=== PATIENT | female | born 1990 | race Caucasian/White ===

== ENCOUNTER 2016-10-31 18:30 | Emergency (ER) | payer BC ==
[2016-10-31 18:51] VITALS: BP 144/84; PULSE 91; RESP 18; TEMP 98.4; O2SAT 95
--- NOTE | 2016-10-31 20:21 | EDPHY ---
H & P Stated Complaint: Transient migratory numbness/weakness x 1 year;wants CT Time Seen by Provider: 10/31/16 20:20 HPI/ROS: CHIEF COMPLAINT: Paresthesias HISTORY OF PRESENT ILLNESS: The patient is a 25-year-old female with a history of trigeminal neuralgia and migraines who comes to the emergency department because her boyfriend is dehydrated. She decided to get seen while she was here as well. She states that for the last couple of years she has had intermittent episodes of paresthesias involving various places. It has recently been involving her left alejandro area and now right alejandro and left forearm and face. Does not involve hands or feet or proximal extremities. She denies back pain. She denies fevers. She denies trauma. She is able to ambulate. She states that yesterday see had some trouble ambulating because her left leg was numb but that today it is much better. She has had 3 MRIs this year being worked up for MS by her primary physician. She states that they have all been negative. She has MS in her family as well as lupus. She has not had any rashes. She denies GI symptoms. She denies chest pain. She does not have any weakness. No bowel or bladder abnormalities. No headaches. She does use amphetamines. REVIEW OF SYSTEMS: Constitutional: denies: chills, fever, recent illness, recent injury EENTM: denies: blurred vision, double vision, nose congestion Respiratory: denies: cough, shortness of breath Cardiac: denies: chest pain, irregular heart rate, lightheadedness, palpitations Gastrointestinal/Abdominal: denies: abdominal pain, diarrhea, nausea, vomiting, blood streaked stools Genitourinary: denies: dysuria, frequency, hematuria, pain Musculoskeletal: denies: joint pain, muscle pain Skin: denies: lesions, rash, jaundice, bruising Neurological: See HPI denies: headache, dizziness, weakness Hematologic/Lymphatic: denies: blood clots, easy bleeding, easy bruising Immunologic/allergic: denies: HIV/AIDS, transplant EXAM: GENERAL: Well-appearing, well-nourished and in no acute distress. HEAD: Atraumatic, normocephalic. EYES: Pupils equal round and reactive to light, extraocular movements intact, sclera anicteric, conjunctiva are normal. ENT: TMs normal, nares patent, oropharynx clear without exudates. Moist mucous membranes. NECK: Normal range of motion, supple without lymphadenopathy or JVD. LUNGS: Breath sounds clear to auscultation bilaterally and equal. No wheezes rales or rhonchi. HEART: Regular rate and rhythm without murmurs, rubs or gallops. ABDOMEN: Soft, nontender, normoactive bowel sounds. No guarding, no rebound. No masses appreciated. BACK: No CVA tenderness, no spinal tenderness, step-offs or deformities EXTREMITIES: Normal range of motion, no pitting or edema. No clubbing or cyanosis. NEUROLOGICAL: Subjective paresthesias in left and right ankle as well as left triceps and left face. Cranial nerves II through XII grossly intact. Normal speech, normal gait. Normal ambulation. Normal balance. Normal strength on Tippy toes. 5/5 strength, normal movement in all extremities, normal sensation PSYCH: Normal mood, normal affect. SKIN: Warm, dry, normal turgor, no visible rashes or lesions. Source: Patient Exam Limitations: No limitations - Personal History LMP (Females 10-55): 8-14 Days Ago Current Tetanus Diphtheria and Acellular Pertussis (TDAP): Yes - Medical/Surgical History Hx Asthma: Yes Hx Chronic Respiratory Disease: No Hx Diabetes: No Hx Cardiac Disease: No Other PMH: IBS. eczema. trigeminal neuralgia. migraines. hypoglycemia. 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 anxiety - Family History Significant Family History: No pertinent family hx - Social History Smoking Status: Never smoked Alcohol Use: Heavy Drug Use: Marijuana, Other Constitutional: Initial Vital Signs Temperature (C) 36.9 C 10/31/16 18:47 Heart Rate 91 10/31/16 18:47 Respiratory Rate 18 10/31/16 18:47 Blood Pressure 144/84 H 10/31/16 18:47 O2 Sat (%) 95 10/31/16 18:47 O2 Delivery Mode Room Air Allergies/Adverse Reactions: No Known Allergies Allergy (Unverified 10/31/16 18:51) Home Medications: Medication Instructions Recorded Albuterol Sulfate [Ventolin Hfa] 18 gm IH 10/31/16 GABAPENTIN 10/31/16 Isomethept/Dichlphn/Acetaminop 10/31/16 [[id number]] Medical Decision Making ED Course/Re-evaluation: The patient has been worked up with MRIs 3 times this year. She does not have any back pain or objective focal neurologic deficits on exam. No fevers. No recent immunizations. She does use amphetamine. We discussed options. She declines workup or testing here but would like to have a referral to Neurology. We discussed indications for returning. Differential Diagnosis: Partial list of the Differential diagnosis considered include but were not limited to; multiple sclerosis, anxiety, peripheral neuropathy and although unlikely based on the history and physical exam, I also considered spinal infection, compression, electrolyte abnormality. I discussed these differential diagnoses and the plan with the patient as well as the usual and expected course. The patient understands that the diagnosis is provisional and that in medicine we are not always correct and that further workup is often warranted. Usual and customary warnings were given. All of the patient's questions were answered. The patient was instructed to return to the emergency department should the symptoms at all worsen or return, otherwise to followup with the physician as we discussed. Departure - Departure Disposition: Home, Routine, Self-Care Clinical Impression: Paresthesias Condition: Fair Instructions: Paresthesia (ED) Referrals: Gilles Olson DO [Primary Care Provider] - As per Instructions Gilles Aranda DO [Medical Doctor] - 5-7 days, call for appt.
== END 2016-10-31 20:25 | disposition home or self-care (01) ==
DX: R20.2 Paresthesia of skin (principal); J45.909 Unspecified asthma, uncomplicated

== ENCOUNTER 2017-06-15 02:25 | Emergency (ER) | payer BC, MEDICAID ==
--- NOTE | 2017-06-15 02:26 | EDPHY ---
H & P Time Seen by Provider: 06/15/17 02:30 HPI/ROS: HPI CHIEF COMPLAINT: Lip laceration HISTORY OF PRESENT ILLNESS: Patient is a very pleasant 26-year-old female she is otherwise healthy, she presents emergency room with right upper lateral lip laceration that goes through the vermilion border. It is 2 cm in horizontal length. She sustained this well swing a dildo. She had herself in the face and she has braces. Sustained this laceration. 30 min prior to arrival. Tetanus shot up-to-date. Past Medical History: Denies significant medical history Past Surgical History: Denies surgical history Social History: Denies drugs alcohol tobacco. Family History: Noncontributory ROS REVIEW OF SYSTEMS: A comprehensive 10 point review of systems is otherwise negative aside from elements mentioned in the history of present illness. Exam Constitutional triage nursing summary reviewed, vital signs reviewed, awake/ alert. Eyes normal conjunctivae and sclera, EOMI, PERRLA. HENT oropharynx: Break his and dentition intact. Right upper lateral lip through the vermilion border 2 cm horizontally oriented laceration, normal inspection, atraumatic, moist mucus membranes, no epistaxis, neck supple/ no meningismus, no raccoon eyes. Respiratory clear to auscultation bilaterally, normal breath sounds, no respiratory distress, no wheezing. Cardiovascular rate normal, regular rhythm, no murmur, no edema, distal pulses normal. Gastrointestinal soft, non-tender, no rebound, no guarding, normal bowel sounds, no distension, no pulsatile mass. Genitourinary no CVA tenderness. Musculoskeletal no midline vertebral tenderness, full range of motion, no calf swelling, no tenderness of extremities, no meningismus, good pulses, neurovascularly intact. Skin pink, warm, & dry, no rash, skin atraumatic. Neurologic awake, alert and oriented x 3, AAOx3, moves all 4 extremities equally, motor intact, sensory intact, CN II-XII intact, normal cerebellar, normal vision, normal speech. Psychiatric normal mood/affect. Heme/Lymph/Immune no lymphadenopathy. Differential Diagnosis: Includes but is not limited to in a particular order with contusion, soft tissue injury, lip laceration Medical Decision Making: Plan for this patient will clean her wound out, irrigated, and then lip laceration need to be repaired. Re-evaluation: Laceration Repair Procedure: Verbal Consent was obtained, Under sterile conditions, The patient had lidocaine with/out epinephrine used approximately 2ccs to local anesthetize the TWO CM Upper Lateral Right sided Lip Laceration. The wound was copiously irrigated with sterile fluid, the wound was explored for foreign bodies there were none visualized, the wound was explored with a sterile glove to the base. There are no deep structures involved, including no arterial injury. THREE 6.O PROLENE interrupted Sutures were placed in this patient's laceration. He had good close approximation of the wound edges. He Tolerated this well. Tolerated procedure well. Good approximation of the wound edges. Vermilion border intact. Patient understands have sutures out 7 days. Keep wound clean, dry and protected. Source: Patient - Medical/Surgical History Hx Asthma: Yes Hx Chronic Respiratory Disease: No Hx Diabetes: No Hx Cardiac Disease: No Other PMH: IBS. eczema. trigeminal neuralgia. migraines. hypoglycemia. 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 anxiety - Social History Smoking Status: Never smoked Constitutional: Initial Vital Signs Temperature (C) 36.9 C 06/15/17 02:26 Heart Rate 94 06/15/17 02:26 Respiratory Rate 20 06/15/17 02:26 Blood Pressure 129/92 H 06/15/17 02:26 O2 Sat (%) 99 06/15/17 02:26 O2 Delivery Mode Room Air Allergies/Adverse Reactions: No Known Allergies Allergy (Unverified 06/15/17 02:25) Home Medications: Medication Instructions Recorded Albuterol Sulfate [Ventolin Hfa] 18 gm IH 10/31/16 Isomethept/Dichlphn/Acetaminop 10/31/16 [[id number]] RX: GABAPENTIN 10/31/16 Departure - Departure Disposition: Home, Routine, Self-Care Clinical Impression: Lip laceration Condition: Good Instructions: Laceration (ED), Care For Your Stitches (ED) Additional Instructions: 1. Sutures need to be removed in 7 days. 2. Keep her wound clean, dry, intact and protected.
[2017-06-15 02:31] VITALS: BP 129/92; PULSE 94; RESP 20; TEMP 98.4; O2SAT 99
== END 2017-06-15 02:50 | disposition home or self-care (01) ==
PROC: 0CQ0XZZ Repair Upper Lip, External Approach (ICD-10-PCS; principal; 2017-06-15)
DX: S01.511A Laceration without foreign body of lip, initial encounter (principal); J45.909 Unspecified asthma, uncomplicated; W22.8XXA Striking against or struck by other objects, initial encounter

== ENCOUNTER 2017-08-13 15:30 | Emergency (ER) | payer MEDICAID ==
--- NOTE | 2017-08-13 16:20 | EDPHY ---
HPI/HX/ROS/PE/MDM Narrative: CHIEF COMPLAINT: Tailbone injury HPI: The patient is a 26 y/o female complaining of tailbone pain secondary to slipping on stairs and landing on her tailbone last night. Denies hitting her head or loss of consciousness. Since the fall she has had some left leg numbness , weakness, and spasms. She is able to walk with some difficulty secondary to pain. She feels like "things are moving around down there". She has had an intermittent sharp pain radiating up her spine. Earlier today she had the sensation to have a bowel movement. Denies chest pain, shortness of breath, abdominal pain, urinary complaints, fever. REVIEW OF SYSTEMS: Aside from elements discussed in the HPI, a comprehensive 10-point review of systems was reviewed and is negative. PMH: IBS, eczema, trigeminal neuralgia, migraines, hypoglycemia, anxiety SOCIAL HISTORY: Boyfriend at bedside, lives in [place], not employed PHYSICAL EXAM: General: Patient is lying on stomach, alert, in no acute distress. ENT: Eyes are normal to inspection. ENT inspection normal. Neck: Normal inspection. Full range of motion. Respiratory: No respiratory distress. Breath sounds normal bilaterally. Cardiovascular: Regular rate and rhythm. Strong peripheral pulses. Normal cap refill. Abdomen: The abdomen is nontender to palpation. There are no peritoneal signs. There are normal bowel sounds. Back: Normal to inspection. Tenderness to palpation of midline lumbar, sacrum, and coccyx. Skin: Normal color. No rash. Warm and dry. Extremities: Normal appearance. Full range of motion. Neuro: Oriented x3. Normal motor function. Normal sensory function. ED Course: 1620: I reviewed patient's sacral, radiologist reading still pending. 164: Reassessed patient and discussed imaging findings. Abdominopelvic CT ordered. 1813: I reviewed patient's abdominopelvic CT, radiologist reading still pending. 1823: Spoke with radiologist regarding patient's CT. No acute fracture or other signs of trauma noted, even on 3D recon images. 1840: Reassessed patient and discussed imaging findings. She has requested a narcotic pain medication - I agreed to give her a takehome pack of oxycodone for severe pain. I have advised her to follow up with an orthopedic surgeon for unimproved symptoms. Return precautions provided; patient is comfortable with this plan. Of note, patient requested a prescription for additional pain medication from the nurse prior to discharge. MDM: This patient presents with tailbone injury after fall onto bottom. CTAP was negative for signs of acute trauma or fracture. There is no evidence of spinal cord injury. - Data Points Imaging Results: Imaging Impressions Sacrum and Coccyx X-Ray 08/13/17 15:56 Impression: 1. No definite sacral or coccygeal fracture or destructive osseous lesion. 2. Mild constipation. Imaging: Discussed imaging studies w/ call center rn Radiologist, I viewed and interpreted images myself Laboratory Results: 08/13/17 08/13/17 17:11 17:04 POC Hgb 15.6 gm/dL gm/dL (12.6-16.3) POC Hct 46 % % (38-47) POC Sodium 143 mEq/L mEq/L (135-145) POC Potassium 3.8 mEq/L mEq/L (3.3-5.0) POC Chloride 101 mEq/L mEq/L (97-110) POC BUN 11 mg/dL mg/dL (7-23) POC Creatinine 1.0 mg/dL mg/dL (0.6-1.0) POC Glucose 87 mg/dL mg/dL (70-100) Beta HCG, Qual NEGATIVE Medications Given: Discontinued Medications Oxycodone/Acetaminophen (Percocet 5/325mg Prepack#4) 1 btl TAKEHOME EDNOW ONE Stop: 08/13/17 18:33 Last Admin: 08/13/17 18:42 Dose: 1 btl Point of Care Test Results: 08/13/17 17:11 POC Sodium 143 POC Potassium 3.8 POC Chloride 101 POC BUN 11 POC Creatinine 1.0 POC Glucose 87 General Time Seen by Provider: 08/13/17 16:17 Initial Vital Signs: Initial Vital Signs Temperature (C) 36.9 C 08/13/17 15:52 Heart Rate 120 H 08/13/17 15:52 Respiratory Rate 18 08/13/17 15:52 Blood Pressure 122/90 H 08/13/17 15:52 O2 Sat (%) 97 08/13/17 15:52 O2 Delivery Mode Room Air Allergies/Adverse Reactions: No Known Allergies Allergy (Verified 08/13/17 15:51) Home Medications: Medication Instructions Recorded Albuterol Sulfate [Ventolin Hfa] 18 gm IH 10/31/16 Departure - Departure Disposition: Home, Routine, Self-Care Clinical Impression: Sacral contusion Condition: Good Instructions: Coccyx Injury (ED) Additional Instructions: Rest, ice, elevation. Follow up with an orthopedic surgeon within one week. Return to the emergency department for worsening pain, swelling, numbness, weakness or other concerns. You have been given a take-home pack of oxycodone. Take one tablet as needed every 6 hours as needed for severe pain. Referrals: Gilles Olson DO [Primary Care Provider] - As per Instructions Rios Moeller MD [Medical Doctor] - As per Instructions Report Scribed for: Hugo Brody Report Scribed by: Kae Collins Date of Report: 08/13/17 Time of Report: 16:20 Physician Review and Approval Statement: Portions of this note were transcribed by an ED scribe. I personally performed the history, physical exam, and medical decision making; and confirm the accuracy of the information in the transcribed note.
[2017-08-13] MEDS ORDERED: IOPAMIDOL (ISOVUE-300) 100 ML BTL ONE (17:33)
[2017-08-13] MEDS ORDERED: OXYCODONE/APAP 5/325MG PREPACK#4 BTL TAKEHOME ONE (18:32)
[2017-08-13 18:50] VITALS: BP 109/72
== END 2017-08-13 18:55 | disposition home or self-care (01) ==
DX: S30.0XXA Contusion of lower back and pelvis, initial encounter (principal); W18.49XA Other slipping, tripping and stumbling without falling, initial encounter
CPT/HCPCS: 82947-QW; Q9967

== ENCOUNTER 2017-09-12 08:30 | Day surgery (SDC) | payer MEDICAID ==
[2017-09-12] MEDS ORDERED: NS 1,000 ML IV ONE (08:41)
[2017-09-12] MEDS ORDERED: ONDANSETRON 4 MG/2 ML VIAL IVP ONE ×2 (08:41→13:04)
--- NOTE | 2017-09-12 09:05 | EDPHY ---
H & P Time Seen by Provider: 09/12/17 09:03 HPI/ROS: Chief complaint. Abdominal pain HPI. 26-year-old female presents emergency department with 4 day history of abdominal pain. Initially it was generalized abdominal pain and now has moved to the right lower quadrant. Described as sharp with radiation to her back. She has had some vomiting and diarrhea. She feels full and somewhat bloated. She does have a history of UTIs but does not have any urinary symptoms. No fever. No previous abdominal surgery. No travel. No chest discomfort or trouble breathing. Pain is worse with movement and walking. ROS Constitutional. no fever/chills, no weakness Eyes. no problems with vision ENT. no sore throat, no nasal drainage Cardiovascular. no chest pain Respiratory. no shortness of breath, no cough Abdominal. Right lower quadrant abdominal pain with nausea vomiting and diarrhea . no problems urinating MS. no calf pain/swelling, no neck/back pain, no joint pain Skin. no rash Lymph. no swollen glands Neuro. no headache, no dizziness, no difficulty walking or with speech Past Medical/Surgical History: IBS, eczema, trigeminal neuralgia, migraines, hypoglycemia, anxiety Social History: Single, nonsmoker, no alcohol Smoking Status: Never smoked Physical Exam: General Appearance: Alert well-developed female mild distress vital signs are stable Eyes: Pupils equal and round no pallor or injection. ENT, Mouth: Mucous membranes are moist. Respiratory: There are no retractions, lungs are clear to auscultation. Cardiovascular: Regular rate and rhythm. Gastrointestinal: Abdomen is soft with tenderness in the right lower quadrant at McBurney's point as well as the right adnexum. No masses. Normal bowel sounds Neurological: Awake and alert, sensory and motor exams grossly normal. Skin: Warm and dry, no rashes. Musculoskeletal: Neck is supple nontender. Extremities symmetrical, full range of motion. Psychiatric: Patient is oriented X 3, there is no agitation. Constitutional: Initial Vital Signs Temperature (C) 36.5 C 09/12/17 08:33 Heart Rate 94 09/12/17 08:33 Respiratory Rate 18 09/12/17 08:33 Blood Pressure 109/81 H 09/12/17 08:33 O2 Sat (%) 96 09/12/17 08:33 O2 Delivery Mode Room Air Allergies/Adverse Reactions: No Known Allergies Allergy (Verified 09/12/17 08:33) Home Medications: Medication Instructions Recorded Albuterol Sulfate [Ventolin Hfa] 18 gm IH 10/31/16 Medical Decision Making - Diagnostics Imaging Results: Imaging Impressions Abdomen Ultrasound 09/12/17 09:13 Impression: 1. Likely a small endometrial polyp. If confirmation is important, then recommend sonohysterography. 2. No source for right lower quadrant pain identified. 2. Limited Abdominal Sonogram History: Right lower quadrant pain, possible appendicitis Technique: Graded compression with a high frequency linear transducer. Findings: A normal appendix is not identified. There is no free fluid or loculated fluid. Normal loops of bowel are identified. There is a single pericecal lymph node measuring 9 x 8 x 5 mm. Impression: Nonvisualized appendix. Please note that on the CT of August 13, a normal gas-filled appendix is present associated with a small appendicolith. Results called to Dr. Mcguire at 10:31 AM. Pelvic/Renal Ultrasound 09/12/17 09:13 Impression: 1. Likely a small endometrial polyp. If confirmation is important, then recommend sonohysterography. 2. No source for right lower quadrant pain identified. 2. Limited Abdominal Sonogram History: Right lower quadrant pain, possible appendicitis Technique: Graded compression with a high frequency linear transducer. Findings: A normal appendix is not identified. There is no free fluid or loculated fluid. Normal loops of bowel are identified. There is a single pericecal lymph node measuring 9 x 8 x 5 mm. Impression: Nonvisualized appendix. Please note that on the CT of August 13, a normal gas-filled appendix is present associated with a small appendicolith. Results called to Dr. Mcguire at 10:[address] 09/12/17 10:47 Impression: An appendicolith is seen in the appendix and the appendix is upper limits of normal in size with minimal stranding at the tip. Constipation, more predominant right-sided. Results called and discussed with Dr. Syed Mcguire on September 12, 2017 at 1144 hours. Ultrasound reviewed by me and discussed with Dr. Mahoney shows a normal pelvic ultrasound. Appendix is not visualized on ultrasound Abdominal CT reviewed by me and discussed with Dr. Landa shows an appendicolith. Appendix is 7 mm in size. Minimal stranding at the tip. There is also constipation Procedures: IV normal saline. Zofran IV ED Course/Re-evaluation: Patient was having discomfort after her ultrasound. She is given 100 mcg of fentanyl IV Re-evaluation 10:45 a.m. And patient and I discussed imaging and lab results. We discussed treatment plan including recommendation for CT for further evaluation. She expresses understanding and agreement. Re-evaluation of patient at 11:45 a.m.. She is stable. She and I discussed imaging studies in recommendation for surgical consult. She expresses understanding and agreement I consulted and discussed the case with Dr. Ding, surgery, who will see the patient in the emergency department After evaluation by surgeon it is felt that the patient has appendicitis and she will go to the operating room Patient given IV Invanz Differential Diagnosis: I considered ovarian cyst, ectopic , appendicitis, urinary tract infection - Data Points Laboratory Results: Laboratory Results 09/12/17 08:40 09/12/17 08:40 09/12/17 09/12/17 09/12/17 08:40 08:40 08:40 WBC RBC Hgb Hct MCV MCH MCHC RDW Plt Count MPV Neut % (Auto) Lymph % (Auto) [place] % (Auto) Eos % (Auto) Baso % (Auto) Nucleat RBC Rel Count Absolute Neuts (auto) Absolute Lymphs (auto) Absolute Monos (auto) Absolute Eos (auto) Absolute Basos (auto) Absolute Nucleated RBC Immature Gran % Immature Gran # Sodium 145 mEq/L mEq/L (135-145) Potassium 4.2 mEq/L mEq/L (3.3-5.0) Chloride 104 mEq/L mEq/L (97-110) Carbon Dioxide 28 mEq/l mEq/l (22-31) Anion Gap 13 mEq/L mEq/L (8-16) BUN 9 mg/dL mg/dL (7-23) Creatinine 0.7 mg/dL mg/dL (0.6-1.0) Estimated GFR > 60 Glucose 70 mg/dL mg/dL (70-100) Calcium 9.2 mg/dL mg/dL (8.5-10.4) Lipase 361 IU/L H IU/L (23-300) Beta HCG, Qual NEGATIVE Urine Color YELLOW Urine Appearance CLEAR Urine pH 5.0 (5.0-7.5) Ur Specific [place] 1.029 (1.002-1.030) Urine Protein NEGATIVE (NEGATIVE) Urine Ketones NEGATIVE (NEGATIVE) Urine Blood 1+ H (NEGATIVE) Urine Nitrate NEGATIVE (NEGATIVE) Urine Bilirubin NEGATIVE (NEGATIVE) Urine Urobilinogen NEGATIVE EU EU (0.2-1.0) Ur Leukocyte Esterase TRACE H (NEGATIVE) Urine RBC 5-10 /hpf H /hpf (0-3) Urine WBC 5-10 /hpf H /hpf (0-3) Ur Epithelial Cells TRACE /lpf /lpf (NONE-1+) Urine Mucus TRACE /lpf /lpf (NONE-1+) Urine Glucose NEGATIVE (NEGATIVE) 09/12/17 08:40 WBC 9.36 10^3/uL 10^3/uL (3.80-9.50) RBC 4.99 10^6/uL 10^6/uL (4.18-5.33) Hgb 14.8 g/dL g/dL (12.6-16.3) Hct 45.0 % % (38.0-47.0) MCV 90.2 fL fL (81.5-99.8) MCH 29.7 pg pg (27.9-34.1) MCHC 32.9 g/dL g/dL (32.4-36.7) RDW 15.1 % % (11.5-15.2) Plt Count 238 10^3/uL 10^3/uL (150-400) MPV 9.4 fL fL (8.7-11.7) Neut % (Auto) 48.1 % % (39.3-74.2) Lymph % (Auto) 38.9 % % (15.0-45.0) [place] % (Auto) 10.8 % % (4.5-13.0) Eos % (Auto) 1.6 % % (0.6-7.6) Baso % (Auto) 0.3 % % (0.3-1.7) Nucleat RBC Rel Count 0.0 % % (0.0-0.2) Absolute Neuts (auto) 4.50 10^3/uL 10^3/uL (1.70-6.50) Absolute Lymphs (auto) 3.64 10^3/uL H 10^3/uL (1.00-3.00) Absolute Monos (auto) 1.01 10^3/uL H 10^3/uL (0.30-0.80) Absolute Eos (auto) 0.15 10^3/uL 10^3/uL (0.03-0.40) Absolute Basos (auto) 0.03 10^3/uL 10^3/uL (0.02-0.10) Absolute Nucleated RBC 0.00 10^3/uL 10^3/uL (0-0.01) Immature Gran % 0.3 % % (0.0-1.1) Immature Gran # 0.03 10^3/uL 10^3/uL (0.00-0.10) Sodium Potassium Chloride Carbon Dioxide Anion Gap BUN Creatinine Estimated GFR Glucose Calcium Lipase Beta HCG, Qual Urine Color Urine Appearance Urine pH Ur Specific [place] Urine Protein Urine Ketones Urine Blood Urine Nitrate Urine Bilirubin Urine Urobilinogen Ur Leukocyte Esterase Urine RBC Urine WBC Ur Epithelial Cells Urine Mucus Urine Glucose Medications Given: Discontinued Medications Fentanyl (Sublimaze) 100 mcg IVP EDNOW ONE Stop: 09/12/17 10:07 Last Admin: 09/12/17 10:09 Dose: 100 mcg Fentanyl (Sublimaze) 100 mcg IVP EDNOW ONE Stop: 09/12/17 12:37 Last Admin: 09/12/17 12:39 Dose: 100 mcg Sodium Chloride (Ns) 1,000 mls @ 0 mls/hr IV ONCE ONE PRN Reason: Wide Open Stop: 09/12/17 08:42 Last Admin: 09/12/17 08:51 Dose: 1,000 mls Ondansetron HCl (Zofran) 4 mg IVP EDNOW ONE Stop: 09/12/17 08:42 Last Admin: 09/12/17 08:51 Dose: 4 mg Departure - Departure Disposition: [facility] Inpatient Acute Clinical Impression: Acute appendicitis Qualifiers: Acute appendicitis type: unspecified acute appendicitis type Qualified Code(s) : K35.80 - Unspecified acute appendicitis Condition: Fair Referrals: Gilles Olson DO [Primary Care Provider] - As per Instructions
[2017-09-12 09:12] LABS: PLATELET COUNT 238 10^3/uL (150-400)
[2017-09-12] MEDS ORDERED: fentaNYL 100 MCG/2 ML INJ IVP ONE ×2 (10:06→12:36)
[2017-09-12] MEDS ORDERED: IOPAMIDOL (ISOVUE-300) 100 ML BTL ONE (10:52)
[2017-09-12] MEDS ORDERED: ERTAPENEM 1 GM in NS 100 ML IV ONE (12:53)
--- NOTE | 2017-09-12 12:53 | GDS ---
[f rep st] TRANSFER SUMMARY CHIEF COMPLAINT: Right lower quadrant pain. HISTORY OF PRESENT ILLNESS: A 26-year-old female with several days of abdominal pain, which began pe riumbilically, migrated to the right lower quadrant. She has vomited. A CT scan in the emergency de partment shows an appendicolith, 7 mm appendix, and some stranding at the tip. In the setting of an appendicolith, this is likely appendicitis. Management with antibiotics alone is inappropriate for p eople with an appendicolith, so I have recommended a laparoscopic appendectomy. ALLERGIES: None. CURRENT MEDICATIONS: Albuterol. HABITS: Nonsmoker, nondrinker. REVIEW OF SYSTEMS: The patient has asthma, otherwise denies heart trouble, diabetes, epilepsy, rheum atic fever. PAST SURGICAL HISTORY: Essure procedure. PHYSICAL EXAM: GENERAL: Pleasant female in mild distress. HEENT: Within normal limits. No sclera l icterus. Pharynx clear. NECK: Supple, without adenopathy. LUNGS: Clear. HEART: Normal S1, S2 , without murmur. ABDOMEN: Soft, tender in the right lower quadrant, with mild guarding. EXTREMITI ES: Unremarkable. NEUROLOGIC: Unremarkable. ASSESSMENT: A 26-year-old with early appendicitis. RECOMMENDATIONS: Laparoscopic appendectomy. Risks and benefits of the procedure, including potentia l for infection, bleeding, hernia formation, and potential recurrence were all discussed with the eva oshea. She understands and is willing to proceed. /[id number]/MODL
[2017-09-12] MEDS ORDERED: ONDANSETRON 4 MG/2 ML VIAL ONE ×3 (12:58→15:38)
[2017-09-12] MEDS ORDERED: LR 1,000 ML IV ONE (14:01)
[2017-09-12] MEDS ORDERED: BUPIVACAINE/EPI 0.5% 30 ML SDV ONE (14:14)
[2017-09-12] MEDS ORDERED: MIDAZOLAM 2 MG/2 ML VIAL ONE (14:23)
--- NOTE | 2017-09-12 14:25 | PDANEPAE ---
ANE History of Present Illness 26 year old female w/ PMHx of MS (not currently being treated, but risk of flair discussed with patient given stress of surgery), Asthma (utilizes albuterol regularly) presents with symptoms of acute appendicitis for lap appy. ANE Past Medical History - Cardiovascular History Hx Hypertension: No Hx Arrhythmias: No Hx Chest Pain: No Hx Coronary Artery / Peripheral Vascular Disease: No Hx CHF / Valvular Disease: No Hx Palpitations: No - Pulmonary History Hx COPD: No Hx Asthma/Reactive Airway Disease: Yes Hx Recent Upper Respiratory Infection: No Hx Oxygen in Use at Home: No Hx Sleep Apnea: No - Endocrine History Hx Diabetes: No Hypothyroid: No Hyperthyroid: No Obesity: no - Renal History Hx Renal Disorders: No - Liver History Hx Hepatic Disorders: No - Neurological & Psychiatric Hx Hx Neurological and Psychiatric Disorders: Yes Neurological / Psychiatric History Comment: Self reports a relapsing/recurring history of MS. Patient under care of her primary care physician. Denies any treatment at this time. Does describe a flair requiring steroids 1 month ago. - Cancer History Hx Cancer: No - Congenital Disorder History Hx Congenital Disorders: No - GI History Gastrointestinal History Comment: IBS ANE Review of Systems Review of Systems: - Exercise capacity Exercise capacity: >=4 METS - Systems Gastrointestinal: Reports: vomitting, abdominal pain, nausea ANE Patient History - Allergies Allergies/Adverse Reactions: No Known Allergies Allergy (Verified 09/12/17 08:33) - Home Medications Home medications: home medication list seen and reviewed Home Medications: Albuterol Sulfate [Ventolin Hfa] 18 gm IH 10/31/16 [Last Taken 09/12/17 07:00 2 puffs] - NPO status NPO Since - Liquids (Date): 09/12/17 NPO Since - Liquids (Time): 07:00 NPO Since - Solids (Date): 09/12/17 NPO Since - Solids (Time): 07:00 - Anes Hx Anes Hx: no prior problems - Smoking Hx Smoking Status: Never smoked Marijuana use: No - Alcohol Use Alcohol Use: None - Family Anes Hx Family Anes Hx: neg - N/A ANE Labs/Vital Signs - Labs Result Diagrams: 09/12/17 08:40 09/12/17 08:40 - Vital Signs Vital Signs: reviewed preoperatively; see RN documention for details Blood Pressure: 113/63 Heart Rate: 82 Respiratory Rate: 14 O2 Sat (%): 97 Height: 172.72 cm Weight: 79.832 kg ANE Physical Exam - Airway Neck exam: FROM Mallampati Score: Class 2 Mouth exam: normal dental/mouth exam Mouth image: 1 - Orthodontics (Braces) present on all teeth. - Pulmonary Pulmonary: no respiratory distress - Cardiovascular Cardiovascular: regular rate and rhythym - ASA Status ASA Status: III ANE Anesthesia Plan Anesthesia Plan: general endotracheal anesthesia Total IV Anesthesia: No
[2017-09-12] MEDS ORDERED: MIDAZOLAM 2 MG/2 ML VIAL IVP ONE (14:26)
[2017-09-12] MEDS ORDERED: PROPOFOL 200 MG/20 ML VIAL ONE (14:30)
[2017-09-12] MEDS ORDERED: fentaNYL 100 MCG/2 ML INJ ONE (14:30)
[2017-09-12] MEDS ORDERED: ROCURONIUM 50 MG/5 ML VIAL ONE (14:30)
[2017-09-12] MEDS ORDERED: DEXAMETHASONE 4 MG/ML VIAL ONE (14:41)
[2017-09-12] MEDS ORDERED: fentaNYL 100 MCG/2 ML INJ IVP PRN (14:50)
[2017-09-12] MEDS ORDERED: ONDANSETRON 4 MG/2 ML VIAL IVP PRN (14:50)
[2017-09-12] MEDS ORDERED: oxyCODONE IR 5 MG TAB PO PRN (14:50)
[2017-09-12] MEDS ORDERED: PROMETHAZINE HCL 25 MG/ML INJ IVP PRN (14:50)
[2017-09-12] MEDS ORDERED: NALOXONE HCL 0.4 MG/ML INJ IVP PRN (14:50)
[2017-09-12] MEDS ORDERED: HYDROmorphONE/DILAUDID 2 MG/ML INJ IVP PRN (14:50)
[2017-09-12] MEDS ORDERED: LR 500 ML IV PRN (14:50)
[2017-09-12] MEDS ORDERED: ACETAMINOPHEN 500 MG TAB PO PRN (14:50)
[2017-09-12] MEDS ORDERED: SUGAMMADEX SODIUM 200 MG/2 ML VIAL IVP ONE (15:08)
--- NOTE | 2017-09-12 16:24 | GOP ---
[f rep st] OPERATIVE REPORT DATE OF OPERATION: SURGEON: Davy Ding MD PREOPERATIVE DIAGNOSIS: Acute appendicitis. POSTOPERATIVE DIAGNOSIS: Early appendicitis. PROCEDURE PERFORMED: Laparoscopic appendectomy. FINDINGS: INDICATIONS: A 26-year-old female with right lower quadrant pain. A CT interpreted as appendicolith and stranding around the tip of the appendix. DESCRIPTION OF PROCEDURE: General anesthesia. The abdomen scrubbed with ChloraPrep, draped in the u sual sterile fashion. Infraumbilical incision made. Veress needle used to achieve pneumoperitoneum. A 12 mm port placed, two 5s elsewhere in the abdomen. Camera was introduced and the viscera were examined. There was no free fluid in the abdomen. No sign of any exudate. The cecum was quite flop py, but on its underside was found an appendix which appeared grossly normal. The mesoappendix was h arvested with Harmonic scalpel, and when the appendix was identified to be flush on the cecum, it was amputated with an Endo-GI 45 blue cartridge. The appendix was placed in an Endopouch and extracted. There was no bleeding. The fascial defect at the umbilicus was closed with 0 Vicryl, skin with 4-0 Vicryl and Dermabond. The patient tolerated the procedure well. /[id number]/MODL
[2017-09-12 18:29] VITALS: BP 119/71
--- NOTE | 2017-09-12 19:14 | POSTANESTH ---
Post Anesthetic Evaluation Cardiovascular Status: Normal, Stable, Similar to Pre-Op Cond Respiratory Status: Normal, Stable, Similar to Pre-op Cond. Level of Consciousness/Mental Status: Can Participate in Eval, Alert and Oriented Pain Control: Adequate, Prn Tx Ordered Nausea/Vomiting Control: Adequate, Prn Tx Ordered Complications Possibly Related to Anesthesia: None Noted
== END 2017-09-12 18:20 | disposition home or self-care (01) ==
LOC: FSGY 13:57
PROVIDERS: ATTEND Surgery
PROC: 0DTJ4ZZ Resection of Appendix, Percutaneous Endoscopic Approach (ICD-10-PCS; principal; 2017-09-12 14:45)
DX: K35.80 Unspecified acute appendicitis (principal); J45.909 Unspecified asthma, uncomplicated
CPT/HCPCS: 96365; J1100; J1335; J2250; J2405; J2704; J3010; Q9967

== ENCOUNTER 2017-09-14 11:30 | Emergency (ER) | payer MEDICAID ==
[2017-09-14] MEDS ORDERED: KETOROLAC 30 MG/1 ML SDV ONE (13:41)
[2017-09-14] MEDS ORDERED: ONDANSETRON 4 MG/2 ML VIAL ONE (13:41)
[2017-09-14] MEDS ORDERED: KETOROLAC 30 MG/1 ML SDV IVP ONE (13:43)
[2017-09-14] MEDS ORDERED: ONDANSETRON 4 MG/2 ML VIAL IVP ONE (13:45)
[2017-09-14 13:47] LABS: PLATELET COUNT 200 10^3/uL (150-400)
--- NOTE | 2017-09-14 14:53 | EDPHY ---
H & P Smoking Status: Never smoked Time Seen by Provider: 09/14/17 12:43 HPI/ROS: CHIEF COMPLAINT: Abdominal pain, constipation HISTORY OF PRESENT ILLNESS: 26-year-old female presents to the emergency department with generalized abdominal pain. She was seen in the emergency department 3 days ago and had an appendectomy. She was prescribed 18 Percocet which she has taken all of them. She has not had a bowel movement since her surgery. No fevers or chills. She is also having some dysuria. Denies frequency or urgency with urination. No neck or back pain. REVIEW OF SYSTEMS: Constitutional: No fever, no chills. Eyes: No double or blurry vision. ENT: No sore throat. Respiratory: No cough, no shortness of breath. Cardiac: No chest pain. Gastrointestinal: As above. No vomiting. Genitourinary: No dysuria. Musculoskeletal: No neck or back pain. Skin: No rashes. Neurological: No headache. (Hortensia Sandoval) Past Medical/Surgical History: Appendectomy 09/11/2017 (Hortensia Sandoval) Social History: Single (Hortensia Sandoval) Physical Exam: General Appearance: Alert, mild to moderate distress. Afebrile. Tearful. Eyes: Pupils equal and round. Extraocular motions are all intact. ENT: Mouth: Mucous membranes moist. Respiratory: No wheezing, rhonchi, or rales, lungs are clear to auscultation. Cardiovascular: Regular rate and rhythm. Gastrointestinal: Abdomen is soft. She has well-healing surgical incision to the anterior aspect of her abdomen. She has some ecchymosis especially around the umbilicus incision. There is no redness or warmth or signs of infection. No drainage from the wounds. No CVA tenderness bilaterally. Neurological: Alert and oriented x 3, cranial nerves II through XII grossly intact Skin: Warm and dry, no rashes. Musculoskeletal: Nontender to palpate along the cervical, thoracic or lumbar spine. Neck is supple. Extremities: Full range of motion and no peripheral edema. Psychiatric: Patient is oriented X 3, there is no agitation. (Hortensia Sandoval) Constitutional: Initial Vital Signs Temperature (C) 36.7 C 09/14/17 11:46 Heart Rate 90 09/14/17 11:46 Respiratory Rate 16 09/14/17 11:46 Blood Pressure 134/86 H 09/14/17 11:46 O2 Sat (%) 96 09/14/17 11:46 O2 Delivery Mode Room Air Allergies/Adverse Reactions: No Known Allergies Allergy (Verified 09/14/17 11:45) Home Medications: Medication Instructions Recorded Albuterol Sulfate [Ventolin Hfa] 18 gm IH 10/31/16 [place] 5/325 (*) 09/14/17 Zofran 09/14/17 Medical Decision Making ED Course/Re-evaluation: Patient was also seen examined by Dr. Syed Mcguire. Her abdomen is soft. I do not think the patient has an infection. Her CBC is normal. She does have some dysuria and her urinalysis reveals 5-10 white blood cells which was similar to her previous visit which urine culture revealed mixed ghulam. I doubt urinary tract infection. The patient is severely constipated. I do not think narcotic medication is indicated. I encouraged magnesium citrate plenty of fluids. She was encouraged to schedule her postoperative follow-up appointment with her surgeon and return if she develops any other concerns. She was comfortable with this plan. (Hortensia Sandoval) I also saw the patient in the emergency department. Did she had a laparoscopic appendectomy 2 days ago. She has taken her whole bottle of Percocet. She complains of pain. Reviewed her labs and again see that her urine has some white blood cells. We did a culture 2 days ago and I reviewed the culture which showed mixed ghulam. Examination of her abdomen shows some periumbilical tenderness. There is bruising but no evidence of infection. Surgical incisions are healing without dehiscence (Syed Mcguire) Differential Diagnosis: Including but not limited to perforation, constipation, abscess, cellulitis, urinary tract infection, pyelonephritis (Hortensia Sandoval) - Data Points Laboratory Results: Laboratory Results 09/14/17 13:35 Medications Given: Discontinued Medications Ketorolac Tromethamine (Toradol) 30 mg IVP EDNOW ONE Stop: 09/14/17 13:44 Last Admin: 09/14/17 13:44 Dose: 30 mg Ondansetron HCl (Zofran) 4 mg IVP EDNOW ONE Stop: 09/14/17 13:46 Last Admin: 09/14/17 13:46 Dose: 4 mg Departure - Departure Disposition: Home, Routine, Self-Care Clinical Impression: Abdominal pain, Constipation Condition: Good Instructions: Constipation (ED), High Fiber Diet (ED), Acute Abdominal Pain (ED ) Additional Instructions: [id number] magnesium citrate to help relieve symptoms of constipation. Drink plenty of fluids. Walking can also help relieve symptoms of constipation. Abdominal Pain: Return to the Emergency Department immediately for increasing pain, fever, vomiting, or if not completely better in 8-12 hours. Referrals: Gilles Olson DO [Primary Care Provider] - As per Instructions
[2017-09-14 15:23] VITALS: BP 122/71
== END 2017-09-14 15:25 | disposition home or self-care (01) ==
DX: G89.18 Other acute postprocedural pain (principal); K59.00 Constipation, unspecified
CPT/HCPCS: 96374; J1885; J2405

== ENCOUNTER 2017-10-10 19:47 | Emergency (ER) | payer MEDICAID ==
[2017-10-10 19:53] VITALS: BP 140/93
[2017-10-10] MEDS ORDERED: SULFAMET/TMP DS PREPACK#2 BTL TAKEHOME ONE (20:00)
[2017-10-10] MEDS ORDERED: CEPHALEXIN 500MG PREPACK#4 BTL TAKEHOME ONE (20:00)
--- NOTE | 2017-10-10 20:00 | EDPHY ---
H & P Stated Complaint: R arm poss infection, reddened, warm to touch Source: Patient Exam Limitations: No limitations - Personal History LMP (Females 10-55): Irregular Current Tetanus Diphtheria and Acellular Pertussis (TDAP): Yes - Medical/Surgical History Hx Asthma: Yes Hx Chronic Respiratory Disease: No Hx Diabetes: No Hx Cardiac Disease: No Hx Renal Disease: No Hx Cirrhosis: No Hx Alcoholism: No Hx HIV/AIDS: No Hx Splenectomy or Spleen Trauma: No Other PMH: IBS. eczema. trigeminal neuralgia. migraines. hypoglycemia, appy. MS. PCOS. 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 anxiety - Social History Smoking Status: Never smoked Time Seen by Provider: 10/10/17 19:55 HPI/ROS: HPI: This is a 26-year-old female who presents with Chief Complaint: R arm poss infection, reddened, warm to touch Location: Right anterior Quality: Redness Duration: 3 days Signs and Symptoms: No bleeding, no radiation, no numbness, no weakness, no tingling, no incontinence, no decreased range of motion, + swelling, no pain, no fever Timing: Gradually worsening Severity: Mild Context: Patient is right-hand dominant presents with possible infection of her IV site that she sustained approximately 4 days ago while in the ER at other hospital. She reports that over the last 3 days she has noted increased redness and warmth. She denies any radiation, weakness, paresthesias. Modifying Factors: None Comment: ROS: see HPI Constitutional: No fever, no chills, no weight loss Eyes: No blurred vision Respiratory: No shortness of breath, no cough Cardiovascular: No chest pain Gastrointestinal: No nausea, no vomiting no diarrhea Genitourinary: No dysuria Extremities: No myalgias Neurologic: No weakness, no numbness Skin: No rashes Hematologic: No bruising, no bleeding MEDICAL/SURGICAL/SOCIAL HISTORY: Medical/surgery history: IBS, eczema, trigeminal neuralgia, migraines, hypoglycemia, appendectomy Social history: Never smoked CONSTITUTIONAL: Extremely well-appearing adult white female, awake and alert, no obvious distress HEENT: Atraumatic and normocephalic. EXTREMITIES: 2/2 pulses, strength 5/5, approximately 2 in x 2 in mildly erythematous and warm annular area over vein. No areas of fluctuance/ discharge. WRIST: Extension to 70, flexion to 80, radial deviation to 20 degree, ulnar deviation to 30, no scaphoid tenderness, no tenderness over ulnar styloid, no tenderness over radial styloid, no pain with Jefry test , no pain with Phalen test, no pain with Tinel test DIP/PIP/MCP flexion/ extension intact with good light touch sensation. no deformities, no clubbing, no cyanosis or edema. NEUROLOGICAL: no focal neuro deficits. GCS 15. Light touch sensation intact. SKIN: Warm and dry, no erythema. no rash. Good capillary refill. (Rosa Barillas ) Constitutional: Initial Vital Signs Temperature (C) 36.7 C 10/10/17 19:51 Heart Rate 95 10/10/17 19:51 Respiratory Rate 19 10/10/17 19:51 Blood Pressure 140/93 H 10/10/17 19:51 O2 Sat (%) 94 10/10/17 19:51 O2 Delivery Mode Room Air Allergies/Adverse Reactions: No Known Allergies Allergy (Verified 10/10/17 19:50) Home Medications: Medication Instructions Recorded Albuterol Sulfate [Ventolin Hfa] 18 gm IH 10/31/16 [place] 5/325 (*) 09/14/17 Zofran 09/14/17 Cephalexin [Keflex (*)] 500 mg PO TID #21 cap 10/10/17 Sulfamethox/Tmp 800/160 mg 1 tab PO BID #14 tab 10/10/17 [Bactrim Ds] Medical Decision Making ED Course/Re-evaluation: Patient clearly has a cellulitis. Given Bactrim and Keflex and prescriptions for sane. Placed in Velcro volar wrist splint for immobilization over the next 3-4 days. Advised supportive care. No signs of neurovascular compromise/tenting of skin/compartment syndrome/ extremities and joints examined above and below area of concern and are neurovascularly intact/DVT. This patient was seen under the supervision of my secondary supervising physician. I evaluated care for this patient independently. Discussed this patient with my attending. (Rosa Barillas) The patient was evaluated and managed by the physician speech language pathologist assistant. I have reviewed this chart and I agree with the findings and plan of care as documented , as indicated by my signature. I am the secondary supervising physician. ( Demi Hansen) Differential Diagnosis: Differential diagnosis includes but is not limited to superficial thrombophlebitis, phlebitis, cellulitis, abscess, DVT. (Rosa Barillas) - Data Points Medications Given: Discontinued Medications Cephalexin (Keflex 500 Mg Prepack#4) 1 btl TAKEHOME EDNOW ONE PRN Reason: Protocol Stop: 10/10/17 20:01 Last Admin: 10/10/17 20:08 Dose: 1 btl Trimethoprim/Sulfamethoxazole (Bactrim Ds Prepack#2) 1 btl TAKEHOME EDNOW ONE Stop: 10/10/17 20:01 Last Admin: 10/10/17 20:09 Dose: 1 btl Departure - Departure Disposition: Home, Routine, Self-Care Clinical Impression: Right forearm cellulitis Condition: Good Instructions: Cephalexin (By mouth), Sulfamethoxazole/Trimethoprim (By mouth), Cellulitis (ED), Phlebitis (ED) Additional Instructions: Wear the splint while out of bed for a minimum of 3-4 days. Take Tylenol 650 mg every 4 hours and/or Ibuprofen 600 mg every 8 hours with food as needed for pain. Take Keflex and Bactrim as directed. Do not skip a dose. Apply ice for 30 minutes at a time; 2-3 times per day for the next 1-2 days. Follow up with PCP in 3-4 days if not improved. Referrals: Gilles Olson DO [Primary Care Provider] - 3-4 days, if not improved Prescriptions: Cephalexin [Keflex (*)] 500 mg PO TID #21 cap Sulfamethox/Tmp 800/160 mg [Bactrim Ds] 1 tab PO BID #14 tab
== END 2017-10-10 20:16 | disposition home or self-care (01) ==
DX: L03.113 Cellulitis of right upper limb (principal); J45.909 Unspecified asthma, uncomplicated
CPT/HCPCS: L3984